=== PATIENT | female | born 2005 | race Caucasian/White ===

== ENCOUNTER 2023-04-07 23:03 | Emergency (ER) | payer BC, OTHER ==
[~2023-04-07] VITALS: Ht 162 cm; Wt 70.0 kg
--- NOTE | 2023-04-07 23:30 | ED Chest Pain ---
General Chief Complaint: Chest Wall Stated Complaint: CHEST PAIN Nursing Triage Note: PATIENT VERBALIZED CHEST PAIN, 'MARIA GUADALUPE WRAPPING AROUND MY HEART". FEELING "LOOPY" STATES "FADING IN/OUT" Source: patient (PT AND 2 FRIENDS--FRIENDS DO MOST OF TALKING FOR PT) History of Present Illness Date Seen by Provider: Apr 07, 2023 Time Seen by Provider: 23:15 Initial Comments PT ARRIVES VIA POV WITH 2 FRIENDS PT C/O CHEST PAIN AND ANXIETY THAT BEGAN 30-45 MINUTES AGO, WHILE SITTING AND WATCHING TV PT STATES IT FEELS "LIKE MARIA GUADALUPE WRAPPING AROUND MY HEART" PT STATES SHE HAS BEEN "LOOPY AND FADING IN AND OUT" PT STATES THIS IS A CHRONIC PROBLEM, ESPECIALLY WHEN SHE HAS ANXIETY--MAKES HER HAVE CHEST PAIN SHE HAS NOT TAKEN ANYTHING FOR PAIN SHE TAKES LEXAPRO FOR CHRONIC ANXIETY--TOOK TODAY'S DOSE. SHE ALSO TAKES PROPRANOLOL--HAD DOSE INCREASED 2 WEEKS AGO AND FOLLOWED UP LAST WEEK. NO FOLLOW UP APPOINTMENT SCHEDULED AT THIS TIME STATES SHE ALSO HAS CHRONIC PAIN IN HER SIDES PT WAS TREATED FOR STREP THROAT LAST WEEK, STILL TAKING AMOXIL. THOSE SYMPTOMS HAVE RESOLVED LMP 03/05/23. PT HAD NEXPLANON PLACED THE END OF --PER FRIENDS PT DENIES SMOKING OR VAPING NICOTINE. SHE USES MARIJUANA ON A FREQUENT BASIS--LAST USED OVER THE WEEKEND. SHE OCCASIONALLY DRINKS ALCOHOL "TWICE A MONTH" --DENIES RECENT ETOH PT IS [employer] STUDENT FROM [employer]. [place]. Allergies and Home Medications Patient Home Medication List Home Medication List Reviewed: Yes Review of Systems Review of Systems Constitutional: no symptoms reported Respiratory: No Symptoms Reported Cardiovascular: See HPI Gastrointestinal: No Symptoms Reported Genitourinary: No Symptoms Reported Musculoskeletal: no symptoms reported Skin: no symptoms reported Psychiatric/Neurological: See HPI Endocrine: No Symptoms Reported Hematologic/Lymphatic: No Symptoms Reported Past [id number] Hx Patient Social History Tobacco Use?: No Substance use?: Yes Substance type: Marijuana Substance frequency: Couple times a week Alcohol Use?: Yes Alcohol Frequency: Several times a month Past Medical History Surgeries: Yes (WISDOM TEETH) Respiratory: No Cardiac: Yes ("CHRONIC CHEST PAIN") Neurological: No Reproductive Disorders: No Female Reproductive Disorders: Denies Genitourinary: No Gastrointestinal: Yes ("CHRONIC PAIN ON MY SIDES") Musculoskeletal: No Endocrine: No HEENT: No Cancer: No Psychosocial: Yes Anxiety Integumentary: No Blood Disorders: No Physical Exam Vital Signs Vital Signs - First Documented 04/07/23 23:15 Temp 37.1 Pulse 80 Resp 18 B/P (MAP) 139/89 (106) Pulse Ox 99 O2 Delivery Room Air Capillary Refill : Less Than 3 Seconds Height, Weight, BMI Height: '" Weight: lbs. oz. kg; 26.00 BMI Method: General Appearance: No Apparent Distress, WD/WN, Other (VERY BIZARRE AFFECT, SMILING. ) Neck: Full Range of Motion, Normal Inspection, Non Tender, Supple Respiratory: Chest Non Tender, Normal Breath Sounds, No Accessory Muscle Use, No Respiratory Distress Cardiovascular: Regular Rate, Rhythm, No Murmur Gastrointestinal: Non Tender, Soft Extremity: Normal Capillary Refill, Normal Inspection, Normal Range of Motion, Non Tender, No Calf Tenderness, No Pedal Edema Neurologic/Psychiatric: Alert, Oriented x3, No Motor/Sensory Deficits, erco machine operator II- XII Norm as Tested Skin: Normal Color, Warm/Dry; No Rash Progress/Results/Core Measures Results/Orders Lab Results Laboratory Tests Test 04/07/23 23:35 04/07/23 23:40 Range/Units White Blood Count 10.3 4.3-11.0 10^3/uL Red Blood Count 4.52 3.80-5.11 10^6/uL Hemoglobin 13.3 11.5-16.0 g/dL Hematocrit 39 35-52 % Mean Corpuscular Volume 86 80-99 fL Mean Corpuscular Hemoglobin 29 25-34 pg Mean Corpuscular Hemoglobin Concent 34 32-36 g/dL Red Cell Distribution Width 11.9 10.0-14.5 % Platelet Count 336 130-400 10^3/uL Mean Platelet Volume 9.4 9.0-12.2 fL Immature Granulocyte % (Auto) 1 % Neutrophils (%) (Auto) 50 42-75 % Lymphocytes (%) (Auto) 37 12-44 % Monocytes (%) (Auto) 9 0-12 % Eosinophils (%) (Auto) 3 0-10 % Basophils (%) (Auto) 1 0-10 % Neutrophils # (Auto) 5.1 1.8-7.8 10^3/uL Lymphocytes # (Auto) 3.8 1.0-4.0 10^3/uL Monocytes # (Auto) 0.9 0.0-1.0 10^3/uL Eosinophils # (Auto) 0.3 0.0-0.3 10^3/uL Basophils # (Auto) 0.1 0.0-0.1 10^3/uL Immature Granulocyte # (Auto) 0.1 0.0-0.1 10^3/uL Sodium Level 138 135-145 MMOL/L Potassium Level 3.8 3.6-5.0 MMOL/L Chloride Level 105 98-107 MMOL/L Carbon Dioxide Level 19 L 21-32 MMOL/L Anion Gap 14 5-14 MMOL/L Blood Urea Nitrogen 12 7-18 MG/DL Creatinine 0.86 0.60-1.30 MG/DL Estimat Glomerular Filtration Rate 100 BUN/Creatinine Ratio 14 Glucose Level 112 H 70-105 MG/DL Calcium Level 9.0 8.5-10.1 MG/DL Corrected Calcium 8.8 8.5-10.1 MG/DL Magnesium Level 2.1 1.6-2.4 MG/DL Total Bilirubin 0.4 0.1-1.0 MG/DL Aspartate Amino Transf (AST/SGOT) 17 5-34 U/L Alanine Aminotransferase (ALT/SGPT) 14 0-55 U/L Alkaline Phosphatase 65 40-136 U/L Troponin I < 0.028 <0.028 NG/ML Total Protein 7.3 6.4-8.2 GM/DL Albumin 4.3 3.2-4.5 GM/DL Acetaminophen Level < 10 L 10-30 UG/ML Serum Alcohol < 10 <10 MG/DL Urine Color YELLOW Urine Clarity CLEAR Urine pH 6.0 5-9 Urine Specific Igo 1.025 H 1.016-1.022 Urine Protein NEGATIVE NEGATIVE Urine Glucose (UA) NEGATIVE NEGATIVE Urine Ketones NEGATIVE NEGATIVE Urine Nitrite NEGATIVE NEGATIVE Urine Bilirubin NEGATIVE NEGATIVE Urine Urobilinogen 0.2 < = 1.0 MG/DL Urine Leukocyte Esterase TRACE H NEGATIVE Urine RBC (Auto) NEGATIVE NEGATIVE Urine RBC NONE /HPF Urine WBC 2-5 /HPF Urine Squamous Epithelial Cells 2-5 /HPF Urine Crystals NONE /LPF Urine Bacteria FEW H /HPF Urine Casts NONE /LPF Urine Mucus MODERATE H /LPF Urine Culture Indicated YES Urine Opiates Screen NEGATIVE NEGATIVE Urine Oxycodone Screen NEGATIVE NEGATIVE Urine Methadone Screen NEGATIVE NEGATIVE Urine Propoxyphene Screen NEGATIVE NEGATIVE Urine Barbiturates Screen NEGATIVE NEGATIVE Ur Tricyclic Antidepressants Screen NEGATIVE NEGATIVE Urine Phencyclidine Screen NEGATIVE NEGATIVE Urine Amphetamines Screen NEGATIVE NEGATIVE Urine Methamphetamines Screen NEGATIVE NEGATIVE Urine Benzodiazepines Screen NEGATIVE NEGATIVE Urine Cocaine Screen NEGATIVE NEGATIVE Urine Cannabinoids Screen NEGATIVE NEGATIVE My Orders Orders - CHERRI SAUCEDO DO Urine Bedside (04/07/23 23:25) Ekg Tracing (04/07/23 23:25) Monitor-Rhythm Ecg Trace Only (04/07/23 23:25) Acetaminophen (04/07/23:25) Alcohol (04/07/23 23:25) Cbc And Automated Diff (04/07/23:25) Comprehensive Metabolic Panel (04/07/23:) Drug Screen Stat (Urine) (04/07/23) Magnesium (04/07/23:) Ua Culture If Indicated (04/07/23:25) Troponin I Boyle (04/07/23 23:25) Urine Culture (04/07/23 23:40) Vital Signs/I&O 04/07/23 04/08/23 23:15 00:35 Temp 37.1 Pulse 80 78 Resp 18 20 B/P (MAP) 139/89 (106) 124/64 Pulse Ox 99 98 O2 Delivery Room Air Room Air Blood Pressure Mean: 106 Progress Progress Note : Progress Note NO PRIOR VISITS HERE VITALS STABLE LABS: -CBC NORMAL -CMP NORMAL -TROPONIN NEGATIVE -UA TRACE LEUKOCYTES, FEW BACTERIA -HCG NEGATIVE -UDS NEGATIVE -ETOH NEGATIVE -ACETAMINOPHEN NEGATIVE EKG NORMAL PAIN IMPROVED AT DISMISSAL DISCUSSED TEST RESULTS, ANTICIPATED COURSE, SYMPTOMATIC TREATMENT, NEED FOR FOLLOW UP AND RETURN PRECAUTIONS PT STATES SHE HAS BEEN TO MULTIPLE ER'S / MULTIPLE TIMES FOR THIS SAME COMPLAINT--STATES "ALL THE TESTS ARE ALWAYS NORMAL" Initial ECG Impression Date: Apr 07, 2023 Initial ECG Impression Time: 23:28 Initial ECG Rate: 79 Initial ECG Rhythm: Normal Sinus Initial ECG Intervals: Normal Initial ECG Impression: Normal Initial ECG Comparisson: No Previous ECG Available Comment INTERPRETED BY ME Departure Impression Primary Impression: Anxiety Additional Impression: Chest pain Disposition: HOME, SELF-CARE Condition: Stable Departure-Patient Inst. Decision time for Depature: 00:23 Referrals: MANAN THAYER MD Patient Instructions: Chest Pain, Adult ED, Anxiety, Adult ED Add. Discharge Instructions: TYLENOL 1 GRAM EVERY 6 HOURS , PLUS MOTRIN 800 MG EVERY 6 HOURS FOR PAIN CONTINUE YOUR REGULAR MEDICATIONS PRESCRIBED FOLLOW UP WITH [facility] IN THE NEXT COUPLE OF DAYS FOR FURTHER CARE, RETURN TO ER IF SYMPTOMS WORSEN All discharge instructions reviewed with patient and/or family. Voiced understanding. CHERRI SAUCEDO DO Apr 07, 2023 23:30
[2023-04-07 23:44] LABS: BASOPHILS # (AUTO) 0.1 10^3/uL (0.0-0.1); BASOPHILS % (AUTO) 1 % (0-10); EOSINOPHILS # (AUTO) 0.3 10^3/uL (0.0-0.3); EOSINOPHILS % (AUTO) 3 % (0-10); HEMATOCRIT 39 % (35-52); HEMOGLOBIN 13.3 g/dL (11.5-16.0); LYMPHOCYTES # (AUTO) 3.8 10^3/uL (1.0-4.0); LYMPHOCYTES % (AUTO) 37 % (12-44); MEAN CORPUSCULAR HEMOGLOBIN 29 pg (25-34); MEAN CORPUSCULAR HGB CONC 34 g/dL (32-36); MEAN CORPUSCULAR VOLUME 86 fL (80-99); MEAN PLATELET VOLUME 9.4 fL (9.0-12.2); MONOCYTES # (AUTO) 0.9 10^3/uL (0.0-1.0); MONOCYTES % (AUTO) 9 % (0-12); NEUTROPHILS # (AUTO) 5.1 10^3/uL (1.8-7.8); NEUTROPHILS % (AUTO) 50 % (42-75); PLATELET COUNT 336 10^3/uL (130-400); WHITE BLOOD COUNT 10.3 10^3/uL (4.3-11.0)
[2023-04-07 23:56] LABS: CHLORIDE 105 MMOL/L (98-107); POTASSIUM 3.8 MMOL/L (3.6-5.0); SODIUM 138 MMOL/L (135-145)
[2023-04-07 23:57] LABS: ALBUMIN 4.3 GM/DL (3.2-4.5)
[2023-04-07 23:59] LABS: BILIRUBIN,URINE NEGATIVE (NEGATIVE); CLARITY,URINE CLEAR; COLOR,URINE YELLOW; GLUCOSE, URINE (UA) NEGATIVE (NEGATIVE); KETONES,URINE NEGATIVE (NEGATIVE); LEUKOCYTE ESTERASE ,URINE TRACE (NEGATIVE); NITRITE,URINE NEGATIVE (NEGATIVE); PROTEIN,URINE NEGATIVE (NEGATIVE)
[2023-04-07 23:59] LABS: GLUCOSE 112 MG/DL (70-105); TOTAL PROTEIN 7.3 GM/DL (6.4-8.2)
[2023-04-08] LABS: CARBON DIOXIDE 19 MMOL/L (21-32)
[2023-04-08 00:01] LABS: BILIRUBIN,TOTAL 0.4 MG/DL (0.1-1.0)
[2023-04-08 00:03] LABS: ALKALINE PHOSPHATASE 65 U/L (40-136); CREATININE SERUM 0.86 MG/DL (0.60-1.30); GFR ESTIMATED 100
[2023-04-08 00:04] LABS: BUN/CREATININE RATIO 14
[2023-04-08 00:06] LABS: ALANINE AMINOTRANSFERASE 14 U/L (0-55)
[2023-04-08 00:07] LABS: MAGNESIUM 2.1 MG/DL (1.6-2.4)
[2023-04-08 00:07] LABS: BACTERIA,URINE FEW /HPF
[2023-04-08 00:08] LABS: ACETAMINOPHEN < 10 UG/ML (10-30)
[2023-04-08 00:08] LABS: AMPHETAMINE SCREEN, URINE NEGATIVE (NEGATIVE); BARBITURATE SCREEN URINE NEGATIVE (NEGATIVE); CANNABINOID SCREEN, URINE NEGATIVE (NEGATIVE); COCAINE SCREEN URINE NEGATIVE (NEGATIVE); METHADONE STAT NEGATIVE (NEGATIVE); OPIATE SCREEN URINE NEGATIVE (NEGATIVE); OXYCODONE STAT NEGATIVE (NEGATIVE); PROPOXYPHENE STAT NEGATIVE (NEGATIVE); TRICYCLIC ANTIDEPRESSANTS SCRE NEGATIVE (NEGATIVE)
[2023-04-08 00:35] VITALS: BP 124/64
== END 2023-04-08 00:35 | disposition home or self-care (01) ==
LOC: ER 23:06
DX: F41.9 Anxiety disorder, unspecified (principal); Z79.899 Other long term (current) drug therapy
CPT/HCPCS: 36415; 80053; 80306; 80320; 80329; 81000; 83735; 84484; 84703; 85025; 87088; 93005; 93041